=== PATIENT | female | born 1995 | race Caucasian/White ===

== ENCOUNTER 2021-11-22 03:41 | Emergency (ER) | payer BC, MEDICAID, SELFPAY ==
[2021-11-22 03:43] VITALS: BP 136/82; PULSE 102; RESP 18; TEMP 36.9; O2SAT 98; BMI 48.3
--- NOTE | 2021-11-22 04:12 | ED.VIS.GI ---
HPI HPI - GI History of Present Illness Chief Complaint: Nausea/Vomiting Informant: patient Nausea/Vomiting/Emesis GI Symptom: Positive for Nausea and Vomiting Onset: Days (4-5) Quality: Positive for Nonbilious; Negative for Blood streaks, Coffee ground or Hematemesis Severity: Severe Diarrhea/Melena/Hematochezia GI Symptom: Negative for Diarrhea, Melena or Hematochezia Associated Symptoms Associated Symptoms: Negative for Dysuria, Frequency, Hematuria or Urgency Narrative Narrative: Patient is about 14 weeks , she has been vomiting off and on all week with difficulty keeping down fluids, she is feeling weak, tired, lightheaded at times without syncope, no abdominal pain or vaginal bleeding or diarrhea or fever/chills. She was in [facility] with her significant other when she started having symptoms, and she went to the local emergency department because she did not have anything to treat it with, she was treated with IV fluids and Zofran prescribed Phenergan but she has not filled it yet. She is concerned because she is G2, P1 and she had a miscarriage around 20 weeks with the other and she states being dehydrated due to a similar predicament might have been related. PFSH PFSH Medical History no medical history no medical history Home Medications aspirin 81 mg chewable tablet 81 mg PO DAILY 11/22/21 [History Last Taken Unknown] cyanocobalamin (vitamin B-12) 25 mcg tablet 25 mcg PO DAILY 11/22/21 [History Last Taken Unknown] ondansetron 4 mg disintegrating tablet 4 mg PO Q6H PRN Nausea 11/22/21 [History Last Taken Unknown] lswhfymw-[id number]-[id number]-FA 1 mg tablet 1 tab PO DAILY 11/22/21 [History Last Taken Unknown] pyridoxine (vitamin B6) 25 mg tablet (Vitamin B-6) 25 mg PO DAILY 11/22/21 [History Last Taken Unknown] Allergy/AdvReac Type Severity Reaction Status Date / Time No Known Allergies Allergy Verified 11/22/21 03:47 Social History Smoking Status: Never smoker ROS ROS ED Constitutional Constitutional ED: Reports malaise and weakness; Denies chills or fever(s) Eyes Eyes: Denies change in vision or diplopia ENT ENT ED: Denies rhinorrhea or sore throat Cardiovascular Cardiovascular: Denies chest pain or palpitations Respiratory/Chest Respiratory/Chest: Denies cough or dyspnea Gastrointestinal Gastrointestinal: Reports nausea and vomiting; Denies abdominal pain or diarrhea Genitourinary Genitourinary ED: Denies dysuria, hematuria or vaginal bleeding Musculoskeletal Musculoskeletal: Denies back pain or neck pain Integumentary Denies abscess or rash Neurologic Neurologic: Reports headache(s); Denies paresthesias or weakness Psychiatric Psychiatric: Denies anxiety or suicidal thoughts EXAM Physical Exam Const Vital Signs: 11/22/21 03:43 11/22/21 05:59 Temperature 98.5 F Temperature Source Temporal Pulse Rate 102 H 74 Respiratory Rate 18 15 Blood Pressure 136/82 H 134/85 H Blood Pressure Mean 100 101 Pulse Ox 98 99 Oxygen Delivery Method Room Air Room Air Positive well nourished, well developed and obese General Appearance ED: well developed and NAD Nutritional Appearance: obese HEENT Reports moist mucous membranes normocephalic and atraumatic Eyes PERRL and EOMs intact bilaterally Neck full ROM and supple Resp normal respiratory effort and clear to auscultation bilaterally Cardio regular rate, regular rhythm and no murmurs Cardio Narrative: mild tachycardia GI non-tender and non-distended Auscultation: normoactive bowel sounds Palpation: soft Speculum Exam - Vagina: Negative for vaginal bleeding Back/Spine no CVA tenderness General Back: other FROM Extremity normal to inspection General Extremety ED: Negative for edema, pulses abnormal or tenderness General Extremity: Negative for edema or pulses abnormal Neuro oriented x3, CN's II-XII intact bilaterally and no sensory deficits noted Sensorium / Orientation: awake and alert Motor Exam: strength 5/5 throughout Psych mental status grossly normal and thought process normal Skin no rashes or lesions noted and no wounds MDM MDM MDM Narrative Medical decision making narrative: Work-up shows that the patient does have some hypokalemia and her bicarb is a little low more consistent with GI loss and mild dehydration. She was given IV fluids as well as IV Reglan 5 mg since this hospital does not allow IV promethazine, she did have improvement in her nausea but she had some mild akathisia which was successfully treated with IV Benadryl 25 mg. On reevaluation she is feeling a lot better just tired. She was given oral potassium as well as an IV 10 mEq K rider, she tolerated this well. I am not can to prescribe her potassium right now since her level was not critically low, and she has been vomiting a lot so as not to confuse the picture. She has Phenergan to fill and take as needed at home, recommend close outpatient follow-up with her [employer] they are comfortable with that plan. Lab Data Attestation: I reviewed the patient's lab results. Labs: Laboratory Results - last 24 hr 11/22/21 11/22/21 04:50 04:50 WBC 7.7 RBC 4.81 Hgb 14.0 Hct 40.3 MCV 83.8 MCH 29.1 MCHC 34.7 RDW Std Deviation 36.5 RDW Coeff of Yuridia 12.0 Plt Count 222 MPV 9.8 Immature Gran % (Auto) 0.900 Neut % (Auto) 73.3 H Lymph % (Auto) 18.6 L Newton % (Auto) 6.8 Eos % (Auto) 0.3 Baso % (Auto) 0.1 Absolute Neuts (auto) 5.7 Absolute Lymphs (auto) 1.44 Nucleated RBC % 0 Sodium 135 L Potassium 3.2 L Chloride 103 Carbon Dioxide 18.0 L Anion Gap 14 BUN 7 Creatinine 0.50 L Estim Creat Clear Calc 156.12 Est GFR (MDRD) Af Amer 195 Est GFR (MDRD) Non-Af 161 BUN/Creatinine Ratio 14.1 Glucose 77 Calcium 9.1 Lipase 94 Discharge Plan Triage Chief Complaint: Nausea/Vomiting ED Provider: Reggie Knapp Dx/Rx/DC Orders Clinical Impression: Hyperemesis gravidarum with electrolyte imbalance, Hypokalemia due to excessive gastrointestinal loss of potassium Instructions: ED Hyperemesis Gravidarum Prescriptions: No Action pyridoxine (vitamin B6) [Vitamin B-6] 25 mg Tablet 25 mg PO DAILY 1 mg Tablet 1 tab PO DAILY aspirin [Baby Aspirin] 81 mg Tablet,Chewable 81 mg PO DAILY ondansetron [Zofran ODT] 4 mg Tablet,Disintegrating 4 mg PO Q6H PRN (Reason: Nausea) Vitamin B-12 25 mcg Tablet 25 mcg PO DAILY Primary Care Provider: Care Physician,No Primary Referrals: Care Physician,No Primary [Primary Care Provider] - Doctor,Your [Non-Staff] - 3-5 Days if not improving (With your [employer]) Disposition Disposition: Home, Self Care
[2021-11-22 04:58] LABS: Absolute Lymphocyte Count 1.44 X10^3/uL (0.83-4.51); Absolute Neutrophil Count 5.7 X10^3/uL (2.0-7.7); Basophil# 0.01 X10^3/uL; Basophil% 0.1 % (0-1); Eosinophil# 0.02 X10^3/uL; Eosinophils% 0.3 % (0-5); Hematocrit 40.3 % (37-47); Lymphocyte # 1.44 X10^3/ul (0.83-4.51); Lymphocyte % 18.6 % (19-41); Mean Corp Hgb Conc 34.7 g/dL (32-36); Mean Corpuscular Hgb 29.1 pg (27.0-32.0); Mean Corpuscular Volume 83.8 fL (81-99); Mean Platelet Vol. 9.8 fl (6.2-12.0); Monocyte# 0.53 X10^3/uL; Monocyte% 6.8 % (0-10); NRBC Flagged by Analyzer 0 % (0-5); Neutrophil # 5.67 X10^3/uL (2.7-7.7); Neutrophil % 73.3 % (47-70); Platelet Count 222 K/mm3 (150-450); RBC Distribution Width SD 36.5 fl (35.1-43.9); Red Blood Count 4.81 M/mm3 (4.2-5.4); White Blood Count 7.7 K/mm3 (4.4-11.0)
[2021-11-22] MEDS: 0.9% Normal Saline 1,000 ML 999 ML IV (05:12)
[2021-11-22] MEDS: Metoclopramide 10 MG/2 ML Vial 5 MG IV (05:15)
[2021-11-22 05:23] LABS: Anion Gap 14 (5-15); BUN 7 mg/dL (7-18); BUN/Creat Ratio 14.1 RATIO (10-20); Calcium,Total 9.1 mg/dL (8.5-10.1); Chloride 103 mmol/L (98-107); EST Glomerular Filtration Rate 161 mL/min (>60); Est Glom Filt Rate - Afr Amer 195 mL/min (>60); Estimated Creatinine Clearance 156.12 ml/min; Glucose 77 mg/dL (74-106); Lipase 94 U/L (73-393); Potassium 3.2 mmol/L (3.5-5.1); Sodium Level 135 mmol/L (136-145)
[2021-11-22] MEDS: DiphenhydrAMINE 50 MG/ML Syringe 25 MG IV (05:28)
[2021-11-22] MEDS: Potassium Chloride 10mEq/100mL 10 MEQ/100 ML IV.SOLN. 100 MEQ IV BOLUS (05:57)
[2021-11-22] MEDS: Potassium Chloride Oral Tablet 20 MEQ 40 MEQ PO (05:57)
[2021-11-22 05:59] VITALS: BP 134/85; PULSE 74; RESP 15; O2SAT 99
== END 2021-11-22 07:25 | disposition home or self-care (01) ==
PROVIDERS: Emergency Provider Emergency Medicine; Visit Provider Emergency Medicine
DX: O21.0 Mild hyperemesis gravidarum (principal); E87.8 Other disorders of electrolyte and fluid balance, not elsewhere classified; Z3A.14 14 weeks gestation of pregnancy; E87.6 Hypokalemia; O99.282 Endocrine, nutritional and metabolic diseases complicating pregnancy, second trimester; Z79.82 Long term (current) use of aspirin
CPT/HCPCS: 80048; 83690; 85025; 96361; 96374; 96375; 99284; J7030